=== PATIENT | male | born 1955 | race African-American/Black ===

== ENCOUNTER 2019-12-04 14:03 | Emergency (ER) | payer OTHER ==
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
[2019-12-04] MEDS ORDERED: Naproxen 500 MG TAB ONE (15:02)
== END 2019-12-04 15:15 | disposition home or self-care (01) ==
LOC: NAV ERS 14:03
DX: S13.4XXA Sprain of ligaments of cervical spine, initial encounter (principal); S39.012A Strain of muscle, fascia and tendon of lower back, initial encounter; M50.30 Other cervical disc degeneration, unspecified cervical region; M51.36 Other intervertebral disc degeneration, lumbar region; V53.5XXA Driver of pick-up truck or van injured in collision with car, pick-up truck or van in traffic accident, initial encounter
CPT/HCPCS: 72125; 72131

== ENCOUNTER 2020-05-31 08:23 | Emergency (ER) | payer OTHER | END 2020-05-31 09:05 | disposition home or self-care (01) | LOC: NAV ERS 08:23 | DX: R51.9 Headache, unspecified (principal); I10 Essential (primary) hypertension; Z79.899 Other long term (current) drug therapy | CPT/HCPCS: 99283 ==

== ENCOUNTER 2025-01-21 14:20 | Emergency (ER) | payer MEDICARE, SELFPAY ==
[~2025-01-21 14:20] MED LIST: Iopamidol 370 76% 100 ML VIAL ONE
[2025-01-21 15:33] LABS: Glucose, Urine (Dipstick) Negative (Negative); Leukocyte Negative (Negative); Protein, Urine (Dipstick) Negative (Neg-Trace); Specific Gravity, Urine 1.015 (1.005-1.030)
[2025-01-21 15:36] LABS: CAUTI Indications for Culture Pelvic or flank pain; RBC/HPF 0-3 HPF (0-3); WBC/HPF 0-3 HPF (0-3)
[2025-01-21 15:37] LABS: Urine Culture Reflex No No
[2025-01-21 15:53] LABS: #Basophils 0.0 thou/uL (0.0-0.2); #Eosinophils 0.2 thou/uL (0.0-0.7); #Lymphocytes 1.0 thou/uL (1.20-3.40); #Monocytes 0.0 thou/uL (0.11-0.59); #Neutrophils 3.8 thou/uL (1.40-6.50); %Basophils 0.0 % (0.0-1.0); %Eosinophils 4.5 % (0.0-10.0); %Lymphocytes 20.6 % (21.0-51.0); %Monocytes 0.2 % (0.0-10.0); %Neutrophils 74.7 % (42.0-75.0); Hematocrit 44.6 % (42.0-52.0); Hemoglobin 13.7 g/dL (14.0-18.0); Mean Corpuscular Hemoglobin 23.4 pg (27.0-31.0); Mean Corpuscular Volume 75.9 fl (78.0-98.0); Platelet Count 201 10x3/uL (130-400); Red Blood Cell (RBC) Count 5.87 mill/uL (4.70-6.10); White Blood Cell (WBC) Count 5.1 10x3/uL (4.8-10.8)
[2025-01-21 15:57] LABS: ALT (SGPT) 17 U/L (Less than 45); AST (SGOT) 28 U/L (11-34); Albumin 4.0 g/dL (3.1-4.5); Alkaline Phosphatase 63 U/L (40-110); Anion Gap 15 mmol/L (10-20); BUN (Urea Nitrogen) 16 mg/dL (8.4-25.7); Bilirubin, Total 0.6 mg/dL (0.3-1.2); Calc. Creatinine Clearance 0 mL/min (70-130); Calcium 9.9 mg/dL (7.8-10.44); Carbon Dioxide 23 mmol/L (23-31); Chloride 101 mmol/L (98-107); Globulin 4.3 g/dL (2.4-3.5); Glucose 91 mg/dL (80-115); Potassium 4.2 mmol/L (3.5-5.1); Sodium 135 mmol/L (136-145)
[2025-01-21] MEDS ORDERED: Ketorolac Tromethamine 30 MG (1 mL) VIAL ONE (19:11)
== END 2025-01-21 19:44 | disposition home or self-care (01) ==
LOC: NAV ERS 14:20
DX: R10.A1 Flank pain, right side (principal); I10 Essential (primary) hypertension
CPT/HCPCS: 74177; 80053; 81001; 85025; 96374; J1885; Q9967